=== PATIENT | female | born 1950 | race African-American/Black ===

== ENCOUNTER 2018-07-12 08:05 | Emergency (ER) | payer OTHER ==
[~2018-07-12] VITALS: Ht 160 cm; Wt 105.9 kg
[~2018-07-12 08:05] MED LIST: ASPI81 PO; BUPR1FIL5 SL; CLOP75 PO; CYCL10 PO; DULO20CA30 PO; ESZO2 PO; INSLAN SQ; INSNOV SQ; ISOS60TA4 PO; LEVO125 PO; METO-558 PO; PREG50 PO; VALS160T2 PO
[2018-07-12] MEDS ORDERED: CELE100 PO (08:11)
[2018-07-12] MEDS ORDERED: LUBI24CA2 PO (08:11)
[2018-07-12] MEDS ORDERED: SENN-176 PO (08:11)
[2018-07-12] MEDS ORDERED: CHL25 PO (08:13)
[2018-07-12] MEDS ORDERED: LEVO125 PO (08:19)
[2018-07-12] MEDS ORDERED: NITR.4P TD (08:19)
[2018-07-12] MEDS ORDERED: DIPH25 PO (08:19)
[2018-07-12] MEDS ORDERED: PREG50 PO (08:19)
[2018-07-12] MEDS ORDERED: AMLO-511 PO (08:19)
[2018-07-12] MEDS ORDERED: OMEP20 PO (08:19)
[2018-07-12] MEDS ORDERED: DULO20CA30 PO (08:21)
[2018-07-12] MEDS ORDERED: BUDE0.255 NEB (08:21)
[2018-07-12] MEDS ORDERED: BUPR1FIL5 SL (08:21)
[2018-07-12] MEDS ORDERED: KETOROLAC TROMETHAMINE 30 MG/ML VIAL IVP ONE (08:45)
[2018-07-12] MEDS ORDERED: SODIUM CHLORIDE 0.9% 1,000 ML IV ONE (08:45)
[2018-07-12 09:38] LABS: BASOPHILS % (AUTO) 0.7 % (0.0-2.0); EOSINOPHILS % (AUTO) 3.5 % (1.0-6.0); HEMATOCRIT 51.1 % (36-46); LYMPHOCYTES % (AUTO) 28.8 % (22.0-44.0); MEAN CORPUSCULAR HEMOGLOBIN 25.1 pg (26.0-34.0); MEAN CORPUSCULAR HGB CONC 31.4 G/dL (31.0-37.0); MEAN CORPUSCULAR VOLUME 80 fL (80-100); MONOCYTES # (AUTO) 0.6 K/uL (0.1-1.0); MONOCYTES % (AUTO) 8.3 % (2.0-9.0); NEUTROPHILS # (AUTO) 4.1 K/uL (1.8-7.7); NEUTROPHILS % (AUTO) 58.7 % (40.0-70.0); PLATELET COUNT (AUTO) 354 K/uL (150-450); RED BLOOD CELL COUNT(AUTO) 6.38 MIL/uL (4.00-5.20); RED CELL DISTRIBUTION WIDTH 19.2 % (11.5-14.5)
[2018-07-12 09:55] LABS: CALCIUM, TOTAL 9.4 mg/dL (8.8-10.5); CREATININE 1.17 mg/dL (0.60-1.30); POTASSIUM 3.4 mmol/L (3.5-5.1)
[2018-07-12 10:00] LABS: ALBUMIN 2.9 g/dL (3.4-5.0); BILIRUBIN,TOTAL 0.5 mg/dL (0.1-1.0); TOTAL PROTEIN, SERUM 7.6 g/dL (6.4-8.2)
[2018-07-12 10:35] VITALS: BP 140/74
[2018-07-12 10:48] LABS: GLUCOSE,POINT OF CARE 96 MG/DL (70-110)
== END 2018-07-12 11:17 | disposition home or self-care (01) ==
LOC: EMS 08:06
DX: M94.0 Chondrocostal junction syndrome [Tietze] (principal); I11.0 Hypertensive heart disease with heart failure; I50.9 Heart failure, unspecified; F32.9 Major depressive disorder, single episode, unspecified; E03.9 Hypothyroidism, unspecified; J44.9 Chronic obstructive pulmonary disease, unspecified; Z79.899 Other long term (current) drug therapy; Z79.4 Long term (current) use of insulin
CPT/HCPCS: 36415; 71045; 80053; 82550; 82962; 83880; 84484; 85025; 93005; 96374; 99285; J1885; J7030

== ENCOUNTER 2019-03-22 18:06 | Inpatient (IN) | payer OTHER ==
[~2019-03-22] VITALS: Ht 167.6 cm; Wt 96.2 kg
[~2019-03-22 18:06] MED LIST changes: +AMLO5TAB9 PO; +BUDE0.255 NEB; +CELE100 PO; +CHL25 PO; -CLOP75 PO; +CLOP75TA3 PO; +DIPH25 PO; +LUBI24CA2 PO; +NITR.4P TD; +OMEP20 PO; +SENN-176 PO
[2019-03-22] MEDS ORDERED: BARIUM SULFATE 0.1% SUSPENSION 450 ML BOTTLE PO ONE (21:45)
[2019-03-22 21:59] LABS: APPEARANCE,URINE CLOUDY (CLEAR); BILIRUBIN,URINE NEGATIVE (NEGATIVE); GLUCOSE, URINE (UA) >=1000 mg/dL (NEGATIVE); KETONES,URINE NEGATIVE (NEGATIVE); LEUKOCYTE ESTERASE ,URINE MODERATE (NEGATIVE); NITRATE,URINE NEGATIVE (NEGATIVE); OCCULT BLOOD,URINE TRACE (NEGATIVE); PH,URINE 5.5 (5.0-8.0); PROTEIN,URINE NEGATIVE (NEGATIVE)
[2019-03-22] MEDS ORDERED: PB/HYOSCY/ATR/SCOP/LIDO/MAALOX 55 ML BOTTLE PO ONE (22:00)
[2019-03-22] MEDS ORDERED: FAMOTIDINE 10 MG/ML 2 ML VIAL IVP ONE (22:00)
[2019-03-22] MEDS ORDERED: IOVERSOL 320 MG/ML 100 ML VIAL ONE (22:04)
[2019-03-22] MEDS ORDERED: SODIUM CHLORIDE 0.9% 100 ML ONE (22:04)
[2019-03-22 22:10] LABS: BASOPHILS % (AUTO) 0.8 % (0.0-2.0); HEMATOCRIT 47.4 % (36-46); LYMPHOCYTES # (AUTO) 1.7 K/uL (1.0-4.8); LYMPHOCYTES % (AUTO) 29.7 % (22.0-44.0); MEAN CORPUSCULAR HEMOGLOBIN 24.5 pg (26.0-34.0); MEAN CORPUSCULAR HGB CONC 31.6 G/dL (31.0-37.0); MEAN CORPUSCULAR VOLUME 78 fL (80-100); MONOCYTES # (AUTO) 0.6 K/uL (0.1-1.0); MONOCYTES % (AUTO) 10.1 % (2.0-9.0); NEUTROPHILS # (AUTO) 3.2 K/uL (1.8-7.7); NEUTROPHILS % (AUTO) 54.4 % (40.0-70.0); PLATELET COUNT (AUTO) 293 K/uL (150-450); RED BLOOD CELL COUNT(AUTO) 6.12 MIL/uL (4.00-5.20)
[2019-03-22 22:16] LABS: BACTERIA,URINE Many /HPF (None Seen); SQUAMOUS EPITHELIAL CELL,UR Few /LPF (None Seen); WBC,URINE 51-100 /HPF (0-5)
[2019-03-22 22:20] LABS: CALCIUM, TOTAL 9.7 mg/dL (8.8-10.5); CREATININE 1.95 mg/dL (0.60-1.30); POTASSIUM 3.6 mmol/L (3.5-5.1)
[2019-03-22 22:25] LABS: INR 1.1 (0.9-1.1); PROTHROMBIN TIME 11.2 SEC (9.4-11.6)
[2019-03-22 22:32] LABS: LACTIC ACID 1.1 mmol/L (0.4-2.0)
[2019-03-22 22:35] LABS: ALBUMIN 2.9 g/dL (3.4-5.0); BILIRUBIN,TOTAL 1.1 mg/dL (0.1-1.0); FREE T4 (FREE THYROXINE) 1.68 ng/dL (0.76-1.46); THYROID STIMULATING HORMONE 0.08 uIU/mL (0.36-3.74); TOTAL PROTEIN, SERUM 7.9 g/dL (6.4-8.2)
[2019-03-23] MEDS ORDERED: CefTRIAXone 1 GM/DEXTROSE 50 ML IV ONE (00:15)
[2019-03-23] MEDS ORDERED: 0.9% SODIUM CHLORIDE 10 ML SYRINGE IVP PRN (01:45)
[2019-03-23] MEDS ORDERED: ONDANSETRON HCL 4 MG/2 ML VIAL IVP PRN (01:45)
[2019-03-23] MEDS ORDERED: ACETAMINOPHEN 325 MG TABLET PO PRN ×2 (01:45→09:30)
[2019-03-23] MEDS ORDERED: SODIUM CHLORIDE 0.9% 1,000 ML IV ONE (09:30)
[2019-03-23] MEDS ORDERED: INSULIN LISPRO 100 UNITS/ML SQ PRN (09:30)
[2019-03-23] MEDS ORDERED: DEXTROSE 50%-WATER 25 GM/50 ML SYRINGE IVP PRN ×2 (09:30→17:30)
[2019-03-23] MEDS ORDERED: BISACODYL 10 MG RECTAL RECTAL SUPPOSITORY PR PRN (09:30)
[2019-03-23] MEDS ORDERED: MORPHINE SULFATE 4 MG/ML SYRINGE IVP PRN (09:30)
[2019-03-23 10:10] LABS: GLUCOSE,POINT OF CARE 395 MG/DL (70-110)
[2019-03-23] MEDS: ASPIRIN 81 MG CHEWABLE TABLET PO SCH (11:28)
[2019-03-23 12:00] VITALS: BP 162/105
[2019-03-23 13:08] LABS: AMPHET/METH SCREEN,URINE NEGATIVE (NEGATIVE); BARBITURATE SCREEN, URINE NEGATIVE (NEGATIVE); BENZODIAZEPINES SCREEN,URINE NEGATIVE (NEGATIVE); CANNABINOID SCREEN,URINE NEGATIVE (NEGATIVE); COCAINE SCREEN,URINE NEGATIVE (NEGATIVE); METHADONE SCREEN, URINE NEGATIVE (NEGATIVE); OPIATE SCREEN,URINE NEGATIVE (NEGATIVE); PHENCYCLIDINE SCREEN,URINE NEGATIVE (NEGATIVE)
[2019-03-23] MEDS: INSULIN GLARGINE,HUM.REC.ANLOG 100 UNITS/ML SQ SCH ×2 (13:50→21:00)
[2019-03-23] MEDS ORDERED: HYDR25TA PO (14:01)
[2019-03-23] MEDS ORDERED: INFLUENZA VIRUS VACCINE QVS 2019-20 (3YR+)/PF 60 MCG/0.5 ML SYRINGE IM ONE (15:00)
[2019-03-23] MEDS ORDERED: MORPHINE SULFATE 2 MG/ML SYRINGE IVP PRN (15:00)
[2019-03-23] MEDS ORDERED: PNEUMOCOCCAL VACCINE POLYVALENT 0.5 ML VIAL [PPSV23] IM ONE (15:00)
[2019-03-23] MEDS: AmLODIPine BESYLATE 5 MG TABLET PO SCH (15:48)
[2019-03-23] MEDS: BUPRENORPHINE HCL/NALOXONE HCL 2-0.5 MG SUBLINGUAL TABLET SL SCH ×2 (15:48→23:51)
[2019-03-23] MEDS: METOPROLOL SUCCINATE 50 MG ER TABLET PO SCH (15:48)
[2019-03-23 16:00] VITALS: BP 168/113
[2019-03-23] MEDS: HEPARIN SODIUM,PORCINE 5,000 UNITS/ML VIAL SQ SCH ×2 (16:12→23:50)
[2019-03-23] MEDS: INSULIN LISPRO 100 UNITS/ML SQ PRN ×2 (18:04→21:27)
[2019-03-23 20:53] VITALS: BP 156/95
[2019-03-23] MEDS ORDERED: ATORVASTATIN CALCIUM 20 MG TABLET PO SCH (21:00)
[2019-03-23] MEDS: OxyCODONE HCL/ACETAMINOPHEN 5-325 MG TABLET PO PRN (21:21)
[2019-03-23] MEDS: DOCUSATE SODIUM 100 MG CAPSULE PO SCH (21:21)
[2019-03-23 22:41] LABS: GLUCOMETER DEV NAME(LOC) 5S.2A; GLUCOSE,POINT OF CARE 187 MG/DL (70-110)
[2019-03-23 23:42] VITALS: BP 144/95
[2019-03-24] MEDS: OxyCODONE HCL/ACETAMINOPHEN 5-325 MG TABLET PO PRN (04:31)
[2019-03-24 05:40] LABS: BASOPHILS % (AUTO) 0.7 % (0.0-2.0); EOSINOPHILS % (AUTO) 6.1 % (1.0-6.0); HEMATOCRIT 48.5 % (36-46); HEMOGLOBIN 15.5 g/dL (12.0-16.0); LYMPHOCYTES # (AUTO) 1.9 K/uL (1.0-4.8); LYMPHOCYTES % (AUTO) 32.9 % (22.0-44.0); MEAN CORPUSCULAR HEMOGLOBIN 24.7 pg (26.0-34.0); MEAN CORPUSCULAR VOLUME 77 fL (80-100); MONOCYTES # (AUTO) 0.5 K/uL (0.1-1.0); NEUTROPHILS % (AUTO) 51.3 % (40.0-70.0); PLATELET COUNT (AUTO) 314 K/uL (150-450); RED BLOOD CELL COUNT(AUTO) 6.27 MIL/uL (4.00-5.20); RED CELL DISTRIBUTION WIDTH 18.1 % (11.5-14.5)
[2019-03-24 05:46] LABS: CALCIUM, TOTAL 9.4 mg/dL (8.8-10.5); CREATININE 1.49 mg/dL (0.60-1.30); POTASSIUM 3.7 mmol/L (3.5-5.1)
[2019-03-24] MEDS ORDERED: LEVOTHYROXINE SODIUM 125 MCG TABLET PO SCH (06:30)
[2019-03-24 06:51] LABS: GLUCOMETER DEV NAME(LOC) 5S.2A; GLUCOSE,POINT OF CARE 99 MG/DL (70-110)
[2019-03-24 07:00] LABS: GLUCOSE,POINT OF CARE 410 MG/DL (70-110)
[2019-03-24 07:00] LABS: GLUCOSE,POINT OF CARE 368 MG/DL (70-110)
[2019-03-24] MEDS: DOCUSATE SODIUM 100 MG CAPSULE PO SCH (08:10)
[2019-03-24] MEDS: HEPARIN SODIUM,PORCINE 5,000 UNITS/ML VIAL SQ SCH ×2 (08:11→16:00)
[2019-03-24] MEDS: ASPIRIN 81 MG CHEWABLE TABLET PO SCH (08:11)
[2019-03-24] MEDS: AmLODIPine BESYLATE 5 MG TABLET PO SCH (08:11)
[2019-03-24] MEDS: BUPRENORPHINE HCL/NALOXONE HCL 2-0.5 MG SUBLINGUAL TABLET SL SCH ×2 (08:15→17:17)
[2019-03-24] MEDS: METOPROLOL SUCCINATE 50 MG ER TABLET PO SCH (08:15)
[2019-03-24 08:27] VITALS: BP 166/96
[2019-03-24] MEDS: INSULIN GLARGINE,HUM.REC.ANLOG 100 UNITS/ML SQ SCH (08:32)
[2019-03-24] MEDS ORDERED: FAMOTIDINE 20 MG TABLET PO SCH (09:00)
[2019-03-24] MEDS ORDERED: LACTULOSE 20 GM/30 ML SOLUTION UDCUP PO PRN (11:15)
[2019-03-24] MEDS: ONDANSETRON HCL 4 MG/2 ML VIAL IVP PRN ×2 (11:29→18:29)
[2019-03-24 11:36] VITALS: BP 158/87
[2019-03-24] MEDS: INSULIN LISPRO 100 UNITS/ML SQ PRN ×2 (12:08→18:58)
[2019-03-24 16:07] VITALS: BP 153/86
[2019-03-24 20:05] LABS: GLUCOMETER DEV NAME(LOC) 5N.1; GLUCOSE,POINT OF CARE 233 MG/DL (70-110)
[2019-03-24 20:05] LABS: GLUCOMETER DEV NAME(LOC) 5N.1; GLUCOSE,POINT OF CARE 181 MG/DL (70-110)
[2019-03-24 20:06] LABS: GLUCOMETER DEV NAME(LOC) 5N.1; GLUCOSE,POINT OF CARE 359 MG/DL (70-110)
== END 2019-03-24 20:10 | disposition home or self-care (01) | DRG 313 ==
LOC: EMS 18:07 → ICU 03-23 09:43 → 5S 03-23 09:51
PROVIDERS: ADMIT Internal Medicine; ATTEND Internal Medicine
DX: R07.89 Other chest pain (principal); N17.9 Acute kidney failure, unspecified; E44.0 Moderate protein-calorie malnutrition; F11.20 Opioid dependence, uncomplicated; N39.0 Urinary tract infection, site not specified; I25.10 Atherosclerotic heart disease of native coronary artery without angina pectoris; E03.9 Hypothyroidism, unspecified; E05.90 Thyrotoxicosis, unspecified without thyrotoxic crisis or storm; E11.65 Type 2 diabetes mellitus with hyperglycemia; E66.01 Morbid (severe) obesity due to excess calories; G89.4 Chronic pain syndrome; I11.0 Hypertensive heart disease with heart failure; I50.9 Heart failure, unspecified; J44.9 Chronic obstructive pulmonary disease, unspecified; Z79.4 Long term (current) use of insulin; Z82.49 Family history of ischemic heart disease and other diseases of the circulatory system; Z82.5 Family history of asthma and other chronic lower respiratory diseases; Z83.3 Family history of diabetes mellitus; Z90.49 Acquired absence of other specified parts of digestive tract; Z90.710 Acquired absence of both cervix and uterus; Z28.21 Immunization not carried out because of patient refusal; Z68.34 Body mass index [BMI] 34.0-34.9, adult
CPT/HCPCS: 74176; 76705; 80307; 83605; 84439; 84443; 84481; 87040; 87081; 87086; 93005; 93306; 96365; 96375; G0378; J0696; J1644; J1815; J2405; J3490; J7030; J7050

== ENCOUNTER 2023-04-26 18:20 | Emergency (ER) | payer OTHER ==
[~2023-04-26] VITALS: Ht 160 cm; Wt 86.4 kg
[~2023-04-26 18:20] MED LIST changes: +AMLO-257 PO; -AMLO5TAB9 PO; +ASPI-1450 PO; -ASPI81 PO; +BUDE0.2517 NEB; -BUDE0.255 NEB; -CELE100 PO; -CHL25 PO; -CLOP75TA3 PO; -CYCL10 PO; -DIPH25 PO; -DULO20CA30 PO; -ESZO2 PO; -INSLAN SQ; -ISOS60TA4 PO; -LEVO125 PO; -LUBI24CA2 PO; -NITR.4P TD; -OMEP20 PO; -PREG50 PO; -SENN-176 PO; -VALS160T2 PO
[2023-04-26 20:59] VITALS: BP 187/92; PULSE 82; RESP 18; TEMP 98.1
== END 2023-04-26 21:30 | disposition home or self-care (01) ==
LOC: EMS 18:21
DX: T17.298A Other foreign object in pharynx causing other injury, initial encounter (principal); J44.9 Chronic obstructive pulmonary disease, unspecified; F32.A Depression, unspecified; E11.9 Type 2 diabetes mellitus without complications; E03.9 Hypothyroidism, unspecified; I25.10 Atherosclerotic heart disease of native coronary artery without angina pectoris; I11.0 Hypertensive heart disease with heart failure; Z90.49 Acquired absence of other specified parts of digestive tract; Z90.710 Acquired absence of both cervix and uterus; Z88.8 Allergy status to other drugs, medicaments and biological substances; W44.8XXA Other foreign body entering into or through a natural orifice, initial encounter; Y93.89 Activity, other specified; Y92.89 Other specified places as the place of occurrence of the external cause; Y99.8 Other external cause status
CPT/HCPCS: 71250; 82962; 99284

== ENCOUNTER 2023-05-29 00:13 | Emergency (ER) | payer OTHER ==
[~2023-05-29] VITALS: Ht 160 cm; Wt 100.0 kg
[2023-05-29 00:23] VITALS: BP 173/88; PULSE 71; RESP 17; TEMP 98.9
[2023-05-29 03:49] LABS: APPEARANCE,URINE HAZY (CLEAR); BILIRUBIN,URINE NEGATIVE (NEGATIVE); COLOR,URINE LIGHT YELLOW (YELLOW); GLUCOSE, URINE (UA) NEGATIVE (NEGATIVE); KETONES,URINE NEGATIVE (NEGATIVE); LEUKOCYTE ESTERASE ,URINE LARGE (NEGATIVE); NITRATE,URINE NEGATIVE (NEGATIVE); OCCULT BLOOD,URINE NEGATIVE (NEGATIVE); PH,URINE 5.5 (5.0-8.0); PROTEIN,URINE TRACE mg/dL (NEGATIVE); SPECIFIC GRAVITIY, URINE 1.015 (1.003-1.030); UROBILINOGEN,URINE <=1.0 mg/dL (<=1.0)
[2023-05-29 04:02] LABS: COVID AG,FIA SOURCE NASAL SWAB
[2023-05-29 04:03] LABS: RBC,URINE None Seen /HPF (0-2)
[2023-05-29 04:04] LABS: BACTERIA,URINE Few /HPF (None Seen); SQUAMOUS EPITHELIAL CELL,UR None Seen /LPF (None Seen); WBC,URINE 26-50 /HPF (0-5)
[2023-05-29 04:18] LABS: SARS-COV2 (COVID) ANTIGEN,FIA Negative (Negative)
[2023-05-29] MEDS ORDERED: CEPH-558 PO (04:39)
[2023-05-29] MEDS ORDERED: CEPHALEXIN MONOHYDRATE 500 MG CAPSULE PO ONE (04:45)
== END 2023-05-29 04:51 | disposition home or self-care (01) ==
LOC: EMS 00:13
DX: N39.0 Urinary tract infection, site not specified (principal); J44.9 Chronic obstructive pulmonary disease, unspecified; F32.A Depression, unspecified; E03.9 Hypothyroidism, unspecified; I25.10 Atherosclerotic heart disease of native coronary artery without angina pectoris; I11.0 Hypertensive heart disease with heart failure; G89.29 Other chronic pain; Z90.49 Acquired absence of other specified parts of digestive tract; Z90.710 Acquired absence of both cervix and uterus; Z98.890 Other specified postprocedural states; Z20.822 Contact with and (suspected) exposure to COVID-19
CPT/HCPCS: 81001; 87086; 87186; 99283